=== PATIENT | male | born 1985 | race Caucasian/White ===

== ENCOUNTER → 2017-09-25 | Outpatient (CLI) | payer OTHER ==
--- NOTE | 2017-09-25 11:59 | Diagnostic Imaging Report ---
PROCEDURE:CHEST 2 VIEWS TECHNIQUE:PA and lateral chest totaling 3 radiographs INDICATION:Cough COMPARISON:None. FINDINGS: Lungs are clear and symmetrically inflated. No pleural effusions. Normal heart size, mediastinal contour and pulmonary vasculature. Intact skeleton. Pectus excavatum. CONCLUSION: 1. No acute abnormality. Specifically, no evidence of pneumonia. 2. Pectus excavatum. Dictated by: Zoran Liu M.D. on 09/25/2017 at 12:07 Electronically approved by: Zoran Liu M.D. on 09/25/2017 at 12:07
== END ==
LOC: RAD 11:03
PROVIDERS: ATTEND Family Medicine
DX: J40 Bronchitis, not specified as acute or chronic (principal)
CPT/HCPCS: 71020